=== PATIENT | male | born 2000 | race Two or more races ===

== ENCOUNTER 2022-09-27 11:14 | Emergency (ER) | payer OTHER ==
[~2022-09-27] VITALS: Ht 185.4 cm; Wt 98.9 kg
[2022-09-27 12:12] LABS: Hematocrit 43.8 % (41.0-53.0); Hemoglobin 14.6 g/dL (13.5-17.5); Mean Corpuscular Hemoglobin 28.8 pg (28.0-32.0); Mean Corpuscular Hgb Conc. 33.4 g/dL (32.0-36.0); Mean Corpuscular Volume 86.3 fL (80.0-100.0); Red Blood Cells 5.08 10^6/uL (4.5-5.90); Red Cell Distribution Width 12.6 % (11.8-14.3); White Blood Cell 9.9 10^3/uL (4.4-10.8)
[2022-09-27] MEDS ORDERED: ONDANSETRON ODT 4 MG TAB PO ONE (12:15)
[2022-09-27 12:31] LABS: Basophils % (manual) 0 (0.0-2.0); Blast Cells 0; Eosinophils % (manual) 0 (0-7); Metamyelocytes % 0; Myelocytes % 0; Promyelocytes % 0
[2022-09-27 12:41] LABS: Albumin 3.3 g/dL (3.4-5.0); BUN/Creatinine Ratio 12.6; Calcium 8.4 mg/dL (8.5-10.1); Potassium 3.8 mmol/L (3.5-5.1)
[2022-09-27 12:43] LABS: Bilirubin, Total 1.3 mg/dL (0.2-1.0); Total Protein 7.6 g/dL (6.4-8.2)
[2022-09-27] MEDS ORDERED: PRED20TA2 PO (13:25)
[2022-09-27] MEDS ORDERED: LEVO-28 PO (13:25)
[2022-09-27 14:10] LABS: Band Neutrophils % (manual) 20; Lymphocytes % (manual) 51 (10.0-50.0); Monocytes % (manual) 5 (0-12); Reactive Lymphocytes 4
[2022-09-27] MEDS ORDERED: IOHEXOL 350 MG/ML 100ML IJ ONE (14:54)
[2022-09-27] MEDS ORDERED: SODIUM CHLORIDE 0.9% 1,000 ML IV ONE ×2 (15:00)
[2022-09-27] MEDS ORDERED: cefTRIAXone 1GM/50ML D5W 50 ML IV ONE (15:00)
[2022-09-27 16:54] VITALS: BP 113/69
== END 2022-09-27 16:58 | disposition home or self-care (01) ==
LOC: ER 11:14
DX: J18.9 Pneumonia, unspecified organism (principal); R42 Dizziness and giddiness
CPT/HCPCS: 36415; 71046; 71275; 80053; 83690; 85007; 85027; 85379; 96365; 99285; J0696; J7030; Q0162; Q9967

== ENCOUNTER 2023-07-13 17:00 | Emergency (ER) | payer OTHER ==
[~2023-07-13] VITALS: Ht 182.9 cm; Wt 100.0 kg
[~2023-07-13 17:00] MED LIST: LEVO500T91 PO; PRED20TA2 PO
[2023-07-13 17:20] LABS: Basophils # (auto) 0.1 10 ^3/uL (0-0.2); Basophils % (auto) 0.8 % (0.0-2.0); Eosinophils # (auto) 0.1 10 ^3/uL (0-0.8); Eosinophils % (auto) 1.4 % (0.0-7.0); Hematocrit 43.5 % (41.0-53.0); Hemoglobin 14.5 g/dL (13.5-17.5); Lymphocytes # (auto) 3.8 10 ^3/uL (0.4-5.4); Lymphocytes % (auto) 44.6 % (10.0-50.0); Mean Corpuscular Hemoglobin 29.1 pg (28.0-32.0); Mean Corpuscular Hgb Conc. 33.4 g/dL (32.0-36.0); Mean Corpuscular Volume 87.2 fL (80.0-100.0); Monocytes # (auto) 0.7 10 ^3/uL (0-1.3); Monocytes % (auto) 8.3 % (0.0-12.0); Neutrophils # (auto) 3.8 10 ^3/uL (1.6-8.6); Neutrophils % (auto) 44.9 % (37.0-80.0); Red Blood Cells 4.99 10^6/uL (4.5-5.90); White Blood Cell 8.6 10^3/uL (4.4-10.8)
[2023-07-13 17:44] LABS: Alanine Aminotransferase 39 U/L (7-40); Albumin 4.9 g/dL (3.2-4.8); Alkaline Phosphatase 104 U/L (46-116); Anion Gap 8 (5-15); Aspartate Aminotransferase 21 U/L (13-40); BUN/Creatinine Ratio 9.5 (10.0-20.0); Bilirubin, Total 0.6 mg/dL (0.2-1.0); Blood Urea Nitrogen 9 mg/dL (9-23); Carbon Dioxide 28 mmol/L (20-30); Chloride 103 mmol/L (98-107); Glucose 88 mg/dL (74-106); Potassium 3.6 mmol/L (3.5-5.1); Sodium 139 mmol/L (136-145)
[2023-07-13 17:45] LABS: Total Protein 7.5 g/dL (5.7-8.2)
[2023-07-13] MEDS ORDERED: HYDROcodone-ACET 5/325MG TAB PO ONE (19:15)
[2023-07-13] MEDS ORDERED: IBUP1TAB5 PO (19:22)
[2023-07-13 21:26] VITALS: BP 132/83; PULSE 69; RESP 16; TEMP 98.1; O2SAT 100
== END 2023-07-13 21:26 | disposition home or self-care (01) ==
LOC: ER 17:00
DX: R07.89 Other chest pain (principal); M94.0 Chondrocostal junction syndrome [Tietze]
CPT/HCPCS: 36415; 71045; 80053; 84484; 85025; 93005

== ENCOUNTER → 2023-10-05 | Outpatient (CLI) | payer OTHER ==
[~2023-10-05] MED LIST changes: +IBUP1TAB5 PO
[2023-10-05 11:31] LABS: Basophils # (auto) 0.1 10 ^3/uL (0-0.2); Basophils % (auto) 0.8 % (0.0-2.0); Eosinophils # (auto) 0.3 10 ^3/uL (0-0.8); Eosinophils % (auto) 5.5 % (0.0-7.0); Hematocrit 45.5 % (41.0-53.0); Hemoglobin 15.4 g/dL (13.5-17.5); Lymphocytes # (auto) 2.8 10 ^3/uL (0.4-5.4); Lymphocytes % (auto) 44.4 % (10.0-50.0); Mean Corpuscular Hemoglobin 29.2 pg (28.0-32.0); Mean Corpuscular Hgb Conc. 33.8 g/dL (32.0-36.0); Mean Corpuscular Volume 86.6 fL (80.0-100.0); Monocytes # (auto) 0.6 10 ^3/uL (0-1.3); Monocytes % (auto) 9.2 % (0.0-12.0); Neutrophils # (auto) 2.5 10 ^3/uL (1.6-8.6); Neutrophils % (auto) 40.1 % (37.0-80.0); Nucleated Red Blood Cells % 0.1 %; Red Blood Cells 5.25 10^6/uL (4.5-5.90); Red Cell Distribution Width 12.8 % (11.8-14.3); White Blood Cell 6.3 10^3/uL (4.4-10.8)
[2023-10-05 12:02] LABS: Alanine Aminotransferase 41 U/L (7-40); Albumin 4.8 g/dL (3.2-4.8); Alkaline Phosphatase 110 U/L (46-116); Anion Gap 8 (5-15); Aspartate Aminotransferase 21 U/L (13-40); BUN/Creatinine Ratio 9.7 (10.0-20.0); Blood Urea Nitrogen 9 mg/dL (9-23); Calcium 9.9 mg/dL (8.5-10.1); Carbon Dioxide 25 mmol/L (20-30); Chloride 107 mmol/L (98-107); Cholesterol 134 mg/dL (< 200); Glucose 90 mg/dL (74-106); HDL Cholesterol 42 mg/dL (40-59); LDL Cholesterol 81 mg/dL (< 100); Potassium 3.8 mmol/L (3.5-5.1); Sodium 140 mmol/L (136-145); Triglycerides 84 mg/dL (< 150)
[2023-10-05 12:03] LABS: Bilirubin, Total 0.8 mg/dL (0.2-1.0); Total Protein 7.6 g/dL (5.7-8.2)
[2023-10-06 07:04] LABS: Urine Bacteria NONE SEEN /hpf (None Seen); Urine Blood Negative /uL (Negative); Urine Clarity Clear (Clear); Urine Color Yellow (Yellow); Urine Protein, UAD Negative (Negative); Urine Specific Gravity 1.024 (1.001-1.035); Urine Urobilinogen Normal (Negative); Urine WBC <1 /hpf (0 - 3)
== END | disposition home or self-care (01) ==
LOC: LAB 11:00
PROVIDERS: ATTEND Internal Medicine
DX: Z00.01 Encounter for general adult medical examination with abnormal findings (principal)
CPT/HCPCS: 36415; 80053; 80061; 81001; 83036; 84443; 85025; 86703; 86803; 87340

== ENCOUNTER → 2023-10-13 | Outpatient (CLI) | payer BC, OTHER | END | disposition home or self-care (01) | LOC: XYW 12:30 | PROVIDERS: ATTEND Internal Medicine | DX: R07.9 Chest pain, unspecified (principal) | CPT/HCPCS: 93306 ==

== ENCOUNTER 2023-11-04 12:18 | Emergency (ER) | payer BC, OTHER ==
[~2023-11-04] VITALS: Ht 185.4 cm; Wt 108.1 kg
[2023-11-04 14:50] VITALS: BP 126/68; PULSE 83; RESP 16; TEMP 98.2; O2SAT 95
[2023-11-04] MEDS ORDERED: MELO7.5T7 PO (15:43)
== END 2023-11-04 15:48 | disposition home or self-care (01) ==
LOC: ER 12:18
DX: S33.5XXA Sprain of ligaments of lumbar spine, initial encounter (principal); Z79.1 Long term (current) use of non-steroidal anti-inflammatories (NSAID); Z79.2 Long term (current) use of antibiotics; Z79.899 Other long term (current) drug therapy; W22.8XXA Striking against or struck by other objects, initial encounter; Y93.89 Activity, other specified; Y92.89 Other specified places as the place of occurrence of the external cause; Y99.8 Other external cause status
CPT/HCPCS: 71101; 72100

== ENCOUNTER 2024-06-05 10:56 | Emergency (ER) | payer BC ==
[~2024-06-05] VITALS: Ht 185.4 cm; Wt 109.5 kg
[~2024-06-05 10:56] MED LIST changes: +MELO7.5T7 PO
[2024-06-05 11:25] VITALS: BP 145/94; PULSE 102; RESP 20; TEMP 98.5; O2SAT 95
[2024-06-05] MEDS: ONDANSETRON ODT 4 MG TAB PO ONE (12:02)
[2024-06-05] MEDS ORDERED: AUG875T PO (12:27)
[2024-06-05] MEDS ORDERED: ZOFR4T PO (12:31)
[2024-06-05] MEDS ORDERED: BECL80AE (12:31)
== END 2024-06-05 12:36 | disposition home or self-care (01) ==
LOC: ER 10:56
DX: J01.90 Acute sinusitis, unspecified (principal); Z79.899 Other long term (current) drug therapy
CPT/HCPCS: 99283; Q0162

== ENCOUNTER 2024-06-24 11:04 | Day surgery (SDC) | payer BC ==
[2024-06-22 14:11] LABS: Urine Bacteria None Seen /hpf (None Seen)
[2024-06-22 14:16] LABS: Basophils # (auto) 0.1 10 ^3/uL (0-0.2); Eosinophils # (auto) 0.1 10 ^3/uL (0-0.8); Eosinophils % (auto) 0.8 % (0.0-7.0); Hemoglobin 14.2 g/dL (13.5-17.5); Lymphocytes # (auto) 2.5 10 ^3/uL (0.4-5.4); Lymphocytes % (auto) 35.9 % (10.0-50.0); Mean Corpuscular Hemoglobin 29.6 pg (28.0-32.0); Mean Corpuscular Hgb Conc. 34.6 g/dL (32.0-36.0); Mean Corpuscular Volume 85.4 fL (80.0-100.0); Monocytes # (auto) 0.6 10 ^3/uL (0-1.3); Monocytes % (auto) 9.1 % (0.0-12.0); Neutrophils # (auto) 3.6 10 ^3/uL (1.6-8.6); Neutrophils % (auto) 53.2 % (37.0-80.0); Platelet Count (auto) 391 10^3/uL (140-450); Red Cell Distribution Width 13.2 % (11.8-14.3); White Blood Cell 6.8 10^3/uL (4.4-10.8)
[2024-06-22 14:23] LABS: Urine Blood Negative /uL (Negative); Urine Clarity Clear (Clear); Urine Color Light-Yellow (Yellow); Urine Protein, UAD Negative (Negative); Urine Specific Gravity 1.025 (1.001-1.035); Urine Urobilinogen Normal (Negative); Urine WBC <1 /hpf (0 - 3); Urine pH 6.5 (5.0-9.0)
[2024-06-22 14:30] LABS: INR 0.99 (0.9-1.15); Partial Thromboplastin Time 27.9 SEC (24.5-34.5); Prothrombin Time 10.5 sec (9.3-11.8)
[2024-06-22 14:31] LABS: Alanine Aminotransferase 45 U/L (7-40); Alkaline Phosphatase 136 U/L (46-116); Anion Gap 5 (5-15); Aspartate Aminotransferase 17 U/L (13-40); BUN/Creatinine Ratio 15.3 (10.0-20.0); Blood Urea Nitrogen 13 mg/dL (9-23); Calcium 10.2 mg/dL (8.7-10.4); Carbon Dioxide 28 mmol/L (20-31); Chloride 108 mmol/L (98-107); Glucose 88 mg/dL (74-106); Potassium 4.2 mmol/L (3.5-5.1); Sodium 141 mmol/L (136-145)
[2024-06-22 14:32] LABS: Albumin 4.7 g/dL (3.2-4.8); Bilirubin, Total 0.4 mg/dL (0.2-1.0); Total Protein 7.5 g/dL (5.7-8.2)
[~2024-06-24] VITALS: Ht 182.9 cm; Wt 113.4 kg
[~2024-06-24 11:04] MED LIST changes: +ESCI1TAB36 PO; -IBUP1TAB5 PO; -LEVO500T91 PO; -MELO7.5T7 PO; -PRED20TA2 PO
[2024-06-24] MEDS ORDERED: fentaNYL CITRATE 100 MCG/2 ML VL ONE (13:39)
[2024-06-24] MEDS ORDERED: MIDAZOLAM HCL 2MG/2ML 2ml VIAL (1mg/ml) ONE (13:39)
[2024-06-24] MEDS: BENZOCAINE (DENTAL)20% 1 SPR SPRAY MT ONE (13:47)
[2024-06-24 14:02] VITALS: RESP 17; TEMP 98.3; O2SAT 99
[2024-06-24] MEDS ORDERED: DexAMETHasone SOD PHOS 10MG/1ML VIAL INJ ONE (14:04)
[2024-06-24] MEDS ORDERED: PROPOFOL 10 MG/ML 20 ML IV ONE (14:04)
[2024-06-24 14:20] VITALS: BP 125/76; PULSE 68; RESP 16; O2SAT 96
== END 2024-06-24 14:02 | disposition home or self-care (01) ==
LOC: GI 11:04
PROVIDERS: ATTEND Internal Medicine Gastroenterology
DX: K21.00 Gastro-esophageal reflux disease with esophagitis, without bleeding (principal); K29.50 Unspecified chronic gastritis without bleeding; K44.9 Diaphragmatic hernia without obstruction or gangrene; E66.01 Morbid (severe) obesity due to excess calories; Z87.891 Personal history of nicotine dependence; Z88.4 Allergy status to anesthetic agent
CPT/HCPCS: 36415; 43239; 80053; 81001; 85025; 85610; 85730; 88305; 88312; 88342; J1100; J2250; J2704; J3010; J7030